=== PATIENT | female | born 1940 | race Caucasian/White ===

== ENCOUNTER → 2017-11-30 | Outpatient (CLI) | payer MEDICARE ==
[~2017-11-30] MED LIST: ALN70T PO; BENA10TA; BENA20TA72 PO; CALC-250 PO; CALC-80 PO; CITA20TA4 PO; ERGO400C; FISH1CAP15 PO; INSU100C; INSU100I5; LOVA20TA2; MAGN400C PO; MELO-195 PO; METF750T2 PO; METH4TAB PO; MNTL10T PO; NIAC750T PO; OMEG1CAP PO; OMG1KC; PNT40TEC PO; PREN-102 PO; TRZ50T PO; VALA100033 PO; VITA150T PO; ZOLP5TAB6 PO; [UNRECOGNIZED DRUG - CODE] PO
--- NOTE | 2017-11-30 11:43 | Diagnostic Imaging Report ---
PROCEDURE: MRI left upper extremity without contrast. TECHNIQUE: Multiplanar, multisequence MR imaging of the left shoulder was performed without contrast. COMPARISON: Left shoulder MRI from 02/24/2014. INDICATION: Left shoulder pain. FINDINGS: Rotator cuff: No high-grade partial or full-thickness rotator cuff tear. Moderate tendinopathy of the subscapularis. No substantial atrophy of the rotator cuff muscle belly. Low-grade focal interstitial tearing of the anterior insertion fibers of supraspinatus. Glenoid labrum: Diffuse degenerative macerated tearing throughout the glenoid labrum. Long head of biceps: Long head of biceps is normally positioned within the bicipital groove. The intracapsular segment is intact. Bones and cartilage: Diffuse full-thickness chondromalacia throughout the glenohumeral joint with reactive bone marrow edema on both sides of the joint and the humeral head and glenoid. Marginal osteophytosis formation of the humeral head and glenoid. Mild hypertrophic degenerative changes of acromioclavicular joint. Soft tissues: Moderate glenohumeral joint effusion with extensive synovitis that is likely reactive/degenerative in nature. No MRI findings of adhesive capsulitis. No fluid or inflammatory like signal within the subacromial/subdeltoid space to indicate bursitis. Deltoid is normal in bulk. IMPRESSION: 1. Severe/end-stage osteoarthritis of the glenohumeral joint. No acquired glenoid retroversion. 2. No full-thickness or retracted rotator cuff tear and no rotator cuff muscle atrophy. 3. The deltoid is normal in bulk. 4. Moderate sized glenohumeral joint effusion with extensive synovitis, this is likely degenerative/reactive in nature. Dictated by: Dictated on workstation # [id number]
== END ==
LOC: RAD 09:35
PROVIDERS: ATTEND Nurse Practitioner Family
DX: M19.012 Primary osteoarthritis, left shoulder (principal)
CPT/HCPCS: 73221

== ENCOUNTER 2018-01-21 11:51 | Outpatient (CLI) | payer MEDICARE ==
[~2018-01-21] VITALS: Ht 165.1 cm; Wt 60.3 kg
[2018-01-21 12:40] LABS: BASOPHILS # (AUTO) 0.1 10^3/uL (0.0-0.1); BASOPHILS % (AUTO) 1 % (0-10); EOSINOPHILS # (AUTO) 0.2 10^3/uL (0.0-0.3); EOSINOPHILS % (AUTO) 2 % (0-10); HEMATOCRIT 44 % (35-52); LYMPHOCYTES # (AUTO) 2.7 X 10^3 (1.0-4.0); LYMPHOCYTES % (AUTO) 30 % (12-44); MEAN CORPUSCULAR HEMOGLOBIN 31 PG (25-34); MEAN CORPUSCULAR HGB CONC 34 G/DL (32-36); MEAN CORPUSCULAR VOLUME 92 FL (80-99); MEAN PLATELET VOLUME 10.1 FL (7.4-10.4); MONOCYTES # (AUTO) 0.6 X 10^3 (0.0-1.0); MONOCYTES % (AUTO) 6 % (0-12); NEUTROPHILS # (AUTO) 5.7 X 10^3 (1.8-7.8); NEUTROPHILS % (AUTO) 62 % (42-75); PLATELET COUNT 301 10^3/uL (130-400); WHITE BLOOD COUNT 9.2 10^3/uL (4.3-11.0)
--- NOTE | 2018-01-21 12:54 | Diagnostic Imaging Report ---
INDICATION: Preop for left total shoulder replacement. TIME OF EXAM: 1:02 p.m. COMPARISON: Comparison is made with prior chest from 01/08/2013. FINDINGS: The heart size is normal. The pulmonary vascularity is unremarkable. The lungs are clear. No infiltrate, effusion or pneumothorax is detected. IMPRESSION: No acute cardiopulmonary process is detected. Dictated by: Dictated on workstation # [id number]
[2018-01-21 13:00] LABS: ALBUMIN 4.4 GM/DL (3.2-4.5); BILIRUBIN,TOTAL 0.5 MG/DL (0.1-1.0); CALCIUM 10.1 MG/DL (8.5-10.1); CREATININE SERUM 0.95 MG/DL (0.60-1.30); POTASSIUM 3.7 MMOL/L (3.6-5.0); TOTAL PROTEIN 7.7 GM/DL (6.4-8.2)
[2018-01-21 13:03] LABS: PROTHROMBIN TIME PATIENT 13.3 SEC (12.2-14.7)
[2018-01-21 13:13] LABS: BILIRUBIN,URINE NEGATIVE (NEGATIVE); CLARITY,URINE CLEAR; COLOR,URINE YELLOW; GLUCOSE, URINE (UA) NEGATIVE (NEGATIVE); KETONES,URINE NEGATIVE (NEGATIVE); LEUKOCYTE ESTERASE ,URINE 3+ (NEGATIVE); NITRITE,URINE NEGATIVE (NEGATIVE); PH,URINE 5 (5-9); PROTEIN,URINE NEGATIVE (NEGATIVE); UROBILINOGEN,URINE NORMAL (NORMAL)
[2018-01-21 13:18] VITALS: BP 140/71
[2018-01-21 13:24] LABS: BACTERIA,URINE TRACE /HPF; RBC,URINE RARE /HPF
[2018-01-21 13:34] LABS: ERYTHROCYTE SEDIMENTATION RATE 18 MM/HR (0-30)
== END 2018-01-21 13:00 | disposition home or self-care (01) ==
LOC: PREOP 11:51
PROVIDERS: ATTEND Orthopaedic Surgery
DX: Z01.810 Encounter for preprocedural cardiovascular examination (principal); Z01.811 Encounter for preprocedural respiratory examination; Z01.812 Encounter for preprocedural laboratory examination; Z11.2 Encounter for screening for other bacterial diseases; M19.012 Primary osteoarthritis, left shoulder; R53.83 Other fatigue
CPT/HCPCS: 36415; 71046; 80053; 81000; 85025; 85610; 85652; 86850; 86900; 86901; 87081; 87088; 93005

== ENCOUNTER 2018-01-30 06:00 | Inpatient (IN) | payer MEDICARE ==
--- NOTE | 2018-01-21 16:23 | HISTORY AND PHYSICAL ---
DATE OF SERVICE: 01/30/2018 DATE OF ADMISSION: 01/30/2018 REASON FOR ADMISSION: This will be for inpatient admission on 01/30/2018 for left total shoulder arthroplasty. HISTORY OF PRESENT ILLNESS: The patient is a 77-year-old left hand dominant female with complaints of progressive worsening left shoulder pain. She underwent an MRI, which showed no rotator cuff pathology, but severe glenohumeral arthrosis. She reports it has been progressive in nature. She reports marked limitations in the shoulder and loss of activities of daily living and function because of the shoulder. She has tried rest and activity modifications. Radiographs reveal severe glenohumeral arthrosis with complete loss of glenohumeral joint space. Due to functional impairment and failure to improve with conservative measures, the patient elected to proceed with surgical intervention. REVIEW OF SYSTEMS: No chest pain, no shortness of breath. No dysuria. PAST MEDICAL HISTORY: Diabetes mellitus type 2, hyperlipidemia, osteoarthritis. PAST SURGICAL HISTORY: Adenoidectomy, tonsillectomy, appendectomy. PRIMARY CARE PROVIDER: [facility]. MEDICATIONS: None. ALLERGIES: No known drug allergies. SOCIAL HISTORY: The patient denies alcohol use. She is a previous smoker. PHYSICAL EXAMINATION: GENERAL: The patient is a well-developed, well-nourished, in no acute distress. HEENT: Normocephalic, atraumatic. Pupils are equal, round, reactive to light. Oropharynx is clear. NECK: Supple, with no lymphadenopathy. LUNGS: Clear to auscultation bilaterally. HEART: Regular rate and rhythm. ABDOMEN: Soft, nontender, nondistended. EXTREMITIES: The left shoulder demonstrates no skin lesions. She has active forward elevation 90 degrees of the left shoulder. Marked glenohumeral crepitus. External rotation 30 degrees, internal rotation to her buttock. Sensation intact to her left upper extremity. IMPRESSION: Severe left shoulder osteoarthritis. PLAN: Left shoulder arthroplasty. The risks, benefits, options, ramifications and recovery have been discussed at length with the patient. She understands and wishes to proceed. Job ID: [id number] DocumentID: [id number] Dictated Date: 01/21/2018 16:00:33 Clinical Research Analyst Date: 01/21/2018 16:23:39 Dictated By: MANNY DONIS MD
[~2018-01-30] VITALS: Ht 165.1 cm; Wt 60.3 kg
--- OUTSIDE RECORDS SUMMARY | 2018-01-30 06:07 | XMS REPORT | Continuity of Care Document ---
Author Author [facility] Organization [facility] Address Unknown Phone Unavailable Allergies Active Description Code Type Severity Reaction Onset Reported/Identified Relationship to Patient Clinical Status Yes No Known Drug Allergies [id number] Drug Allergy Unknown N/A 11/23/2009 Medications There is no data. Problems Date Dx Coded Attending Type Code Diagnosis Diagnosed By 01/27/2013 Ot 250.00 DIAB PATTI WO COMPL, TYPE II OR UNSPEC TY 01/27/2013 Ot 531.90 STOMACH ULCER NOS 01/27/2013 Ot 562.10 DIVERTICULOSIS COLON (W/O MENT OF HEMORR 01/27/2013 Ot 783.21 LOSS OF WEIGHT 01/27/2013 Ot V76.51 SCREEN MAL NEOP-COLON 02/09/2014 HEATHER GUPTA, SHAWN Briggs Ot 053.9 HERPES ZOSTER NOS 02/09/2014 HEATHER GUPTA, SHAWN Briggs Ot 782.1 NONSPECIF SKIN ERUPT NEC 11/29/2017 DIMAS GUPTA, ROLF Tellez Ot 729.5 PAIN IN LIMB 11/29/2017 DIMAS GUPTA, ROLF Tellez Ot 562.10 DIVERTICULOSIS COLON (W/O MENT OF HEMORR 11/29/2017 ROLF COCHRAN MD Ot 715.31 LOC OSTEOARTH NOS-SHLDER 11/29/2017 ROLF COCHRAN MD Ot 715.34 LOC OSTEOARTH NOS-HAND 11/29/2017 ROLF COCHRAN MD Ot 719.41 JOINT PAIN-SHLDER 11/29/2017 ROLF COCHRAN MD Ot 726.10 BURSAE TENDONS DIS SHLDER NOS 11/29/2017 ROLF COCHRAN MD Ot 789.00 ABDOMINAL PAIN, UNSPECIFIED SITE 12/03/2017 MEGAN CHRISTIANSON APRN Ot M19.012 PRIMARY OSTEOARTHRITIS, LEFT SHOULDER 12/03/2017 MEGAN CHRISTIANSON APRN Ot M19.012 PRIMARY OSTEOARTHRITIS, LEFT SHOULDER 12/20/2017 MEGAN CHRISTIANSON APRN Ot M19.012 PRIMARY OSTEOARTHRITIS, LEFT SHOULDER 12/28/2017 MEGAN CHRISTIANSON APRN Ot M19.012 PRIMARY OSTEOARTHRITIS, LEFT SHOULDER 01/21/2018 MANNY DONIS MD Ot Z01.812 ENCOUNTER FOR PREPROCEDURAL LABORATORY E 01/21/2018 DIMAS GUPTA, ROLF Tellez Ot 729.5 PAIN IN LIMB 01/21/2018 ROLF COCHRAN MD Ot 562.10 DIVERTICULOSIS COLON (W/O MENT OF HEMORR 01/21/2018 DIMAS GUPTA, ROLF Tellez Ot 715.31 LOC OSTEOARTH NOS-LDER 01/21/2018 ROLF COCHRAN MD Ot 715.34 LOC OSTEOARTH NOS-HAND 01/21/2018 ROLF COCHRAN MD Ot 719.41 JOINT PAIN-LDER 01/21/2018 ROLF COCHRAN MD Ot 726.10 BURSAE TENDONS DIS SHLDER NOS 01/21/2018 ROLF COCHRAN MD Ot 789.00 ABDOMINAL PAIN, UNSPECIFIED SITE 01/21/2018 MEGAN CHRISTIANSON APRN Ot M19.012 PRIMARY OSTEOARTHRITIS, LEFT SHOULDER 01/23/2018 MANNY DONIS MD Ot M19.012 PRIMARY OSTEOARTHRITIS, LEFT SHOULDER 01/23/2018 MANNY DONIS MD Ot R53.83 OTHER FATIGUE 01/23/2018 MANNY DONIS MD Ot Z01.810 ENCOUNTER FOR PREPROCEDURAL CARDIOVASCUL 01/23/2018 MANNY DONIS MD Ot Z01.811 ENCOUNTER FOR PREPROCEDURAL RESPIRATORY 01/23/2018 MANNY DONIS MD Ot Z01.812 ENCOUNTER FOR PREPROCEDURAL LABORATORY E 01/23/2018 MANNY DONIS MD Ot Z11.2 ENCOUNTER FOR SCREENING FOR OTHER BACTER Procedures There is no data. Results Test Result Range Complete blood count (CBC) with automated white blood cell (WBC) differential - 01/21/18 12:30 Blood leukocytes automated count (number/volume) 9.2 10*3/uL 4.3-11.0 Blood erythrocytes automated count (number/volume) 4.80 10*6/uL 4.35-5.85 Venous blood hemoglobin measurement (mass/volume) 15.0 g/dL 11.5-16.0 Blood hematocrit (volume fraction) 44 % 35-52 Automated erythrocyte mean corpuscular volume 92 [foz_us] 80-99 Automated erythrocyte mean corpuscular hemoglobin (mass per erythrocyte) 31 pg 25-34 Automated erythrocyte mean corpuscular hemoglobin concentration measurement ( mass/volume) 34 g/dL 32-36 Automated erythrocyte distribution width ratio 13.0 % 10.0-14.5 Automated blood platelet count (count/volume) 301 10*3/uL 130-400 Automated blood platelet mean volume measurement 10.1 [foz_us] 7.4-10.4 Automated blood neutrophils/100 leukocytes 62 % 42-75 Automated blood lymphocytes/100 leukocytes 30 % 12-44 Blood monocytes/100 leukocytes 6 % 0-12 Automated blood eosinophils/100 leukocytes 2 % 0-10 Automated blood basophils/100 leukocytes 1 % 0-10 Blood neutrophils automated count (number/volume) 5.7 10*3 1.8-7.8 Blood lymphocytes automated count (number/volume) 2.7 10*3 1.0-4.0 Blood monocytes automated count (number/volume) 0.6 10*3 0.0-1.0 Automated eosinophil count 0.2 10*3/uL 0.0-0.3 Automated blood basophil count (count/volume) 0.1 10*3/uL 0.0-0.1 Comprehensive metabolic panel - 01/21/18 12:30 Serum or plasma sodium measurement (moles/volume) 139 mmol/L 135-145 Serum or plasma potassium measurement (moles/volume) 3.7 mmol/L 3.6-5.0 Serum or plasma chloride measurement (moles/volume) 102 mmol/L 98-107 Carbon dioxide 25 mmol/L 21-32 Serum or plasma anion gap determination (moles/volume) 12 mmol/L 5-14 Serum or plasma urea nitrogen measurement (mass/volume) 13 mg/dL 7-18 Serum or plasma creatinine measurement (mass/volume) 0.95 mg/dL 0.60-1.30 Serum or plasma urea nitrogen/creatinine mass ratio 14 NRG Serum or plasma creatinine measurement with calculation of estimated glomerular filtration rate 57 NRG Serum or plasma glucose measurement (mass/volume) 105 mg/dL 70-105 Serum or plasma calcium measurement (mass/volume) 10.1 mg/dL 8.5-10.1 Serum or plasma total bilirubin measurement (mass/volume) 0.5 mg/dL 0.1-1.0 Serum or plasma alkaline phosphatase measurement (enzymatic activity/volume) 129 U/L 40-136 Serum or plasma aspartate aminotransferase measurement (enzymatic activity/ volume) 16 U/L 5-34 Serum or plasma alanine aminotransferase measurement (enzymatic activity/volume ) 11 U/L 0-55 Serum or plasma protein measurement (mass/volume) 7.7 g/dL 6.4-8.2 Serum or plasma albumin measurement (mass/volume) 4.4 g/dL 3.2-4.5 PT panel in platelet poor plasma by coagulation assay - 01/21/18 12:30 Prothrombin time (PT) in platelet poor plasma by coagulation assay 13.3 s 12.2-14.7 INR in platelet poor plasma or blood by coagulation assay 1.0 0.8-1.4 Erythrocyte sedimentation rate by westergren method - 01/21/18 12:30 Erythrocyte sedimentation rate by westergren method 18 mm 0-30 Blood type T Indirect antibody screen panel - 01/21/18 12:30 ABO+Rh group OP NRG Blood group antibody screen NEGATIVE NRG Methicillin resistant Staphylococcus aureus (MRSA) screening culture - 12:30 Methicillin resistant Staphylococcus aureus (MRSA) screening culture NEG NRG Complete urinalysis with reflex to culture - 01/21/18 12:48 Urine color determination YELLOW NRG Urine clarity determination CLEAR NRG Urine pH measurement by test strip 5 5-9 Specific gravity of urine by test strip 1.020 1.016- 1.022 Urine protein assay by test strip, semi-quantitative NEGATIVE NEGATIVE Urine glucose detection by automated test strip NEGATIVE NEGATIVE Erythrocytes detection in urine sediment by light microscopy 3+ NEGATIVE Urine ketones detection by automated test strip NEGATIVE NEGATIVE Urine nitrite detection by test strip NEGATIVE NEGATIVE Urine total bilirubin detection by test strip NEGATIVE NEGATIVE Urine urobilinogen measurement by automated test strip (mass/volume) NORMAL NORMAL Urine leukocyte esterase detection by dipstick 3+ NEGATIVE Automated urine sediment erythrocyte count by microscopy (number/high power field) RARE NRG Automated urine sediment leukocyte count by microscopy (number/high power field ) [HPF] NRG Bacteria detection in urine sediment by light microscopy TRACE NRG Squamous epithelial cells detection in urine sediment by light microscopy 5-10 NRG Crystals detection in urine sediment by light microscopy NONE NRG Casts detection in urine sediment by light microscopy NONE NRG Mucus detection in urine sediment by light microscopy NEGATIVE NRG Complete urinalysis with reflex to culture YES NRG Bacterial urine culture - 01/21/18 12:48 Bacterial urine culture [id number] NRG COLONY COUNT <10,000 NRG FTX;REPORTABLE SINGLE COLONY NRG URINE CULTURE RESULTS PLUS NRG FREE TEXT ENTRY 2 NO FURTHER STUDIES UNLESS REQUESTED NRG Encounters ACCT No. Visit Date/Time Discharge Status Pt. Type Provider Facility Loc./Unit Complaint [id number] 01/21/2018 11:51:00 01/21/2018 13:00:00 DIS Outpatient MANNY DONIS MD [facility] PREOP LEFT SHOULDER OSTEOARTHRITIS [id number] 11/30/2017 09:35:00 11/30/2017 23:59:59 CLS Outpatient MEGAN CHRISTIANSON APRN [facility] RAD LT ANTERIOR SHOULDER PAIN [id number] 02/24/2014 12:44:00 02/24/2014 23:59:59 CLS Outpatient ROLF COCHRAN MD [facility] RAD LFT SHOULDER PAIN,RT GROIN PAIN [id number] 02/09/2014 08:56:00 02/09/2014 09:31:00 DIS Emergency HEATHER GUPTA, SHAWN Briggs [facility] ER RASH ON RIGHT LEG [id number] 08/11/2013 11:23:00 08/11/2013 23:59:59 CLS Outpatient ROLF COCHRAN MD [facility] RAD PAIN IN LIMB [id number] 01/30/2018 08:45:00 PEN Preadmit MANNY DONIS MD LEFT SHOULDER OSTEOARTHRITIS [id number] 01/27/2013 08:46:00 Document Registration
[2018-01-30] MEDS ORDERED: ROPIVACAINE 5MG/ML 30ML VIAL ONE (06:31)
[2018-01-30] MEDS ORDERED: MIDAZOLAM 2 MG/2 ML (VERSED) VIAL ONE (06:31)
[2018-01-30] MEDS: LACTATED RINGERS 1,000 ML IV PRN ×2 (06:43→07:35)
[2018-01-30] MEDS ORDERED: CEFUROXIME INJECTION 1,500 MG in NS (IVPB) 100 ML IV ONE (06:45)
[2018-01-30 06:46] VITALS: BP 128/80
[2018-01-30] MEDS ORDERED: DEXAMETHASONE 10 MG/ML (DECADRON) 1 ML VIAL ONE (06:46)
[2018-01-30] MEDS ORDERED: LIDOCAINE PF 2% 5 ML (XYLOCAINE) VIAL ONE (06:46)
[2018-01-30] MEDS ORDERED: NS (IVPB) 100 ML ONE (06:46)
[2018-01-30] MEDS ORDERED: ONDANSETRON 4 MG/2 ML (SDV) Z0FRAN ONE (06:46)
[2018-01-30] MEDS ORDERED: CEFUROXIME 1.5 GM (ZINACEF) VIAL ONE (06:46)
[2018-01-30] MEDS ORDERED: proPOfol 200 MG/20 ML (DIPRIVAN) VIAL IV ONE (06:46)
[2018-01-30] MEDS ORDERED: ROCURONIUM 10 MG/ML 5 ML SYRINGE IV ONE (06:46)
[2018-01-30] MEDS ORDERED: SEVOFLURANE (ULTANE) 15 ML INHAL SOLN ONE ×4 (06:46→09:43)
[2018-01-30] MEDS ORDERED: fentaNYL INJECTION 100 MCG/2 ML AMP ONE (06:47)
[2018-01-30] MEDS ORDERED: BUPIVACAINE 0.25% 30 ML (SENSORCAINE) VIAL ONE (07:02)
--- NOTE | 2018-01-30 07:26 | Progress Note-Pre Operative ---
Pre-Operative Progress Note H&P Reviewed The H&P was reviewed, patient examined and no changes noted. Date Seen by Provider: Jan 30, 2018 Time Seen by Provider: 07:25 Date H&P Reviewed: Jan 30, 2018 Time H&P Reviewed: 07:26 Pre-Operative Diagnosis: left shoulder primary osteoarthritis MANNY DONIS MD Jan 30, 2018 07:26
--- NOTE | 2018-01-30 07:27 | Progress Note-Post Operative ---
Post-Operative Progess Note Surgeon (s)/Camera Control Operator (s) Surgeon MANNY DONIS MD Camera Control Operator: willem Nevarez Pre-Operative Diagnosis left shoulder primary osteoarthritis Post-Operative Diagnosis left shoulder primary osteoarthritis Procedure & Operative Findings Date of Procedure 01/30/18 Procedure Performed/Findings left total shoulder arthroplasty Anesthesia Type GETA plus interscalene Estimated Blood Loss Estimated blood loss (mL): 400 ml Specimens/Packing Specimens Removed none Packing: none MANNY DONIS MD Jan 30, 2018 07:27
[2018-01-30] MEDS ORDERED: OXYC-197 PO (07:28)
[2018-01-30] MEDS ORDERED: morphine PCA 30 MG/30 ML VIAL IV PRN (07:30)
[2018-01-30] MEDS ORDERED: ONDANSETRON 4 MG/2 ML (SDV) Z0FRAN IVP PRN ×2 (07:30→08:30)
[2018-01-30] MEDS ORDERED: ACETAMINOPHEN 325 MG TABLET/CAPLET (TYLENOL) PO PRN (07:30)
--- NOTE | 2018-01-30 07:30 | D/C HH Face to Face Order ---
D/C Face to Face Orders Instructions for Patient Patient Instructions/FollowUp: two weeks Physician to follow Patient: two weeks Discharge Diet for Home: Regular Diet Patient Data-Allergies,Ht & Wt Patient Allergies: Coded Allergies: No Known Drug Allergies (Verified , 11/23/09) Height (Feet): 5 Height (Inches): 5.00 Weight (Pounds): 133 Weight (Ounces): 0.0 Home Health Need/Face to Face Date of Face to Face: Jan 30, 2018 Clinical Findings: Instability, Muscle weakness, Unsteady gait I have seen Pt [id number]: Yes Discharged To: Home Diagnosis/Conditions: left shoulder arthroplasty Patient is Homebound due to: Praveen fall risk due to instabilty, Muscle weakness Homebound Status Due to the above stated illness, injury or surgical procedure (medical condition or diagnosis) and associated clinical findings, the patient is homebound because of his/her inability to leave home except with aid of a supportive device and/or person AND leaving the home requires a considerable and taxing effort or is medically contraindicated. Pt req the following assistanc: Aid of another person Home Health Nursing Orders Home Health Services Order: Physical Therapy-Evaluate & Treat Home Health Infusion Therapy Line Start Date: Jan 30, 2018 Line Start Time: 629 Line Type: Peripheral IV Site Location: Forearm Therapy Orders Therapy Orders: Physical Therapy, PT to assess for OT Therapy Specific Orders: Eval assistive deivces, Teach enviro modifications/ safety, Increase strength/endurance, Restore ROM Certify Stmt I certify that this patient is under my care and that I, a nurse practitioner or a physician; a operations assistant working with me, had a face to face encounter that - meets the physician face to face encounter requirements with this patient as dated. MANNY DONIS MD Jan 30, 2018 07:30
[2018-01-30] MEDS ORDERED: morphine INJ 10 MG/ML 1ML (SYR OR VIAL) IVP PRN (08:30)
[2018-01-30] MEDS ORDERED: MEPERIDINE (DEMEROL) INJ 50 MG/ML IVP PRN (08:30)
[2018-01-30] MEDS ORDERED: PHENYLEPHRINE INJ 10 MG/ML (NEO-SYNEPHRINE 1%) ONE ×3 (08:47→09:43)
[2018-01-30] MEDS ORDERED: PHENYLEPHRINE 100 MCG/ML 10 ML (ANESTHESIA) SYR ONE (08:47)
[2018-01-30] MEDS ORDERED: NEOSTIGMINE 1 MG/ML 5 ML SYRINGE ONE (09:43)
[2018-01-30] MEDS ORDERED: GLYCOPYRROLATE 0.2 MG/ML (ROBINUL) 2 ML VIAL ONE (09:43)
--- NOTE | 2018-01-30 10:29 | Anesthesia-General Post-Op ---
General Patient Condition Mental Status/LOC: Same as Preop Cardiovascular: Satisfactory Nausea/Vomiting: Absent Respiratory: Satisfactory Pain: Controlled Complications: Absent Post Op Complications Complications None Follow Up Care/Instructions Patient Instructions None needed. Anesthesia/Patient Condition Patient Condition Patient is doing well, no complaints, stable vital signs, no apparent adverse anesthesia problems. No complications reported per nursing. D/C home per [facility] Criteria: Yes CHESTER WALLACE CRNA Jan 30, 2018 10:29
--- NOTE | 2018-01-30 10:53 | Progress Note-Standard ---
Standard Progress Note Progress Notes/Assess & Plan Date Seen by Provider: Jan 30, 2018 Time Seen by Provider: 10:52 Progress/Assessment & Plan post op check resting block in effect radiographs--HW well positioned without fx LUE--brisk cap refill with symmetric pulses s/p L TSA mobilize/pain control MANNY DONIS MD Jan 30, 2018 10:53
[2018-01-30 11:25] VITALS: BP 92/51
[2018-01-30] MEDS ORDERED: NS IV 1000 ML 1,000 ML IV SCH (12:45)
[2018-01-30 13:00] VITALS: BP 118/57
--- NOTE | 2018-01-30 13:25 | Diagnostic Imaging Report ---
INDICATION: Postop left shoulder replacement. TECHNIQUE: Two portable postoperative views of the left shoulder were performed at 10:09 AM. CORRELATION STUDY: None. FINDINGS: Postoperative change of left humeral head prosthesis. There is loss of normal smooth contour of the bony glenoid. Soft tissue gas collection and overlying skin chata are present. The alignment appears to be near-anatomic. Probable effusion in the left lung base. There may be minimal atelectasis or even perhaps infiltrate in the perihilar and basilar region. IMPRESSION: Postoperative change of left shoulder arthroplasty. Dictated by: Dictated on workstation # [id number]
[2018-01-30] MEDS ORDERED: IBUP-30 PO (13:58)
[2018-01-30] MEDS: CEFUROXIME INJECTION 750 MG in NS (IVPB) 100 ML IV SCH ×2 (14:32→22:00)
[2018-01-30 16:00] VITALS: BP 115/59
--- NOTE | 2018-01-30 18:06 | OPERATIVE REPORT ---
DATE OF SERVICE: 01/30/2018 PREOPERATIVE DIAGNOSIS: Left shoulder primary osteoarthritis. POSTOPERATIVE DIAGNOSIS: Left shoulder primary osteoarthritis. PROCEDURE: Left total shoulder arthroplasty. SURGEON: Pepe Donis MD HELP DESK ASSISTANT: LILLIAN Blas, who assisted throughout the procedure and closed the incision. ANESTHESIA: General endotracheal plus interscalene nerve block by Armin Dumont CRNA. ESTIMATED BLOOD LOSS: 400 mL. DRAINS: None. COMPLICATIONS: None. MATERIALS: Tornier size 4C stem with a 45 x 15 mm humeral head and a small 30 pegged glenoid. The patient was transferred to recovery room awake and stable condition. POSTOPERATIVE PLAN: Sling wear for 4 weeks with passive range of motion for 4 weeks. STATEMENT OF MEDICAL NECESSITY: The patient is a 77-year-old left hand dominant female with complaints of progressively worsening left shoulder pain and loss of function. Radiographs revealed severe osteoarthritis of the left shoulder. An MRI revealed intact rotator cuff. The patient was counseled regarding treatment options and elected to proceed with a total shoulder arthroplasty understanding that this was for pain relief and would not necessarily improve her range of motion. DESCRIPTION OF PROCEDURE: After risks and benefits of procedure were discussed and questions were answered, informed consent was signed and placed on the chart. The operative site was confirmed in the preoperative holding area initialed by the surgeon. The patient was then transported to the operating room and after adequate levels of regional plus general endotracheal anesthetic were obtained, timeout was called confirmed the operative site. The left shoulder and upper extremity were prepped and draped in the usual sterile fashion. Passive forward elevation was 120 degrees, external rotation was 40 degrees and internal rotation was 40 degrees. After prepping and draping a deltopectoral incision was made anteriorly. Hemostasis was obtained with cautery. The cephalic vein was identified and retracted with the deltoid laterally and carefully protected throughout the procedure and intact at the conclusion of the procedure. The interval was bluntly dissected. A finger dissection was carried out underneath the deltoid and a deltoid retractor was placed and the clot. Clavipectoral fascia was incised on the lateral aspect of the conjoined tendon. The bicipital groove was identified and 1 cm proximal to the lesser tuberosity. The subscapularis and capsule were incised and tagging sutures were placed. This exposed the glenohumeral joint. Hemostasis was obtained with cautery. A subperiosteal release was performed on the proximal humeral metaphysis for approximately 2 cm. The osteophytes off the humeral neck were resected identifying the anatomic neck. A freehand cut was then made, removing the humeral head. The canal finder was then placed followed by the sounder and the broaches. A 4 broach provided good metaphyseal contact. This was then planed on the proximal surface and attention was then turned to the glenoid. The glenoid was exposed and a release was performed on the capsule labral complex through 270 degrees exposing the glenoid. The cannulated wire was then placed centrally and a reamer was used to resect the articular surface. The small 30 glenoid guide was placed and the drill holes were placed. The trial was placed and found to have excellent coverage. The joint was copiously irrigated and the small 30 pegged glenoid was then placed and held in position until the cement cured. This was then carefully inspected and found to be stable with excellent coverage. A humeral head trial was then placed. 50% posterior subluxation was obtained. Version was felt to be very good. Full forward elevation was obtained with arm in 90 degrees of abduction at 60 degrees of internal rotation was obtained. The shoulder was stable in all planes. No impingement was noted with adduction that the humeral head and stem trial were removed and a 4C stem was placed with a 45 x 15 mm humeral head. This had excellent purchase. The shoulder was taken through a range of motion and found to be stable in all planes with no impingement. The shoulder joint was copiously irrigated with pulse lavage as I had been throughout the procedure. The capsule and subscapularis were reapproximated #2 Tevdek in mcymiq-wz-ohzmp interrupted fashion with an excellent repair obtained, good tissue remained. The rotator cuff was intact throughout and felt to be of good quality tissue as well. The joint was further irrigated with pulse lavage. A 0 Vicryl was used to loosely approximate the deltopectoral interval. The wound was further irrigated. A 2-0 Vicryl was used for subcutaneous tissue and skin chata used on the skin layer, the incision was infiltrated with plain Marcaine. Soft dressing and sling were applied and the patient was transferred to the recovery room awake and in stable condition. Job ID: [id number] DocumentID: [id number] Dictated Date: 01/30/2018 10:03:35 Hospice Admitting Clerk Date: 01/30/2018 18:05:50 Dictated By: PEPE DONIS MD
[2018-01-30] MEDS: oxyCODONE/APAP 5/325MG (PERCOCET 5) TABLET PO PRN (19:23)
[2018-01-30 20:00] VITALS: BP 114/65
[2018-01-31] VITALS: BP 102/53
[2018-01-31 04:00] VITALS: BP 97/64
[2018-01-31 06:46] LABS: HEMOGLOBIN 11.7 G/DL (11.5-16.0)
[2018-01-31] MEDS: ENOXAPARIN 40 MG/0.4 ML (LOVENOX) SYR SC SCH (07:47)
--- NOTE | 2018-01-31 07:54 | Progress Note-Standard ---
Standard Progress Note Progress Notes/Assess & Plan Date Seen by Provider: Jan 31, 2018 Time Seen by Provider: 07:52 Progress/Assessment & Plan post op check resting block in effect radiographs--HW well positioned without fx LUE--brisk cap refill with symmetric pulses s/p L TSA mobilize/pain control Final Diagnosis No complaints requiring IV pain meds Vital Signs Date Time Temp Pulse Resp B/P (MAP) Pulse Ox O2 Delivery O2 Flow Rate FiO2 01/31/18 07:01 91 01/31/18 06:00 17 01/31/18 04:00 98.9 9 17 97/64 (75) 93 Room Air 01/31/18 00:00 97.6 100 18 102/53 (69) 92 Room Air 01/30/18 20:00 100.0 107 18 114/65 (81) 92 Room Air 01/30/18 18:26 90 2.00 01/30/18 18:25 18 01/30/18 16:00 97.0 95 18 115/59 (77) 94 Room Air 01/30/18 15:00 96 Nasal Cannula 2.00 01/30/18 14:30 96 Nasal Cannula 2.00 01/30/18 13:44 18 01/30/18 13:44 18 01/30/18 13:00 95 118/57 (77) 01/30/18 11:25 95.6 73 18 92/51 (65) 98 Room Air I & O 01/31/18 07:00 Intake Total 3610 ml Output Total 1500 ml Balance 2110 ml Laboratory Tests Test 01/31/18 06:02 Range/Units Hemoglobin 11.7 11.5-16.0 G/DL Hematocrit 36 35-52 % LUE--dressing intact. Intact MCP ext/abduction, thumb IP flexion and extension. Sensation intact throughout s/p L TSA will require inpt admit due to pain management issues. likely DC tomorrow MANNY DONIS MD Jan 31, 2018 07:54
[2018-01-31] MEDS: oxyCODONE/APAP 5/325MG (PERCOCET 5) TABLET PO PRN ×3 (07:58→20:55)
[2018-01-31 08:00] VITALS: BP 114/57
--- NOTE | 2018-01-31 11:33 | Anesthesia-General Post-Op ---
General Patient Condition Mental Status/LOC: Same as Preop Cardiovascular: Satisfactory Nausea/Vomiting: Absent Respiratory: Satisfactory Pain: Controlled Complications: Absent Post Op Complications Complications None Follow Up Care/Instructions Patient Instructions None needed. Anesthesia/Patient Condition Patient Condition Patient is doing well, no complaints, stable vital signs, no apparent adverse anesthesia problems. No complications reported per nursing. D/C home per [facility] [place] Criteria: No ABELARDO JOHNS CRNA Jan 31, 2018 11:33
[2018-01-31 12:00] VITALS: BP 99/52
[2018-01-31] MEDS: morphine INJ 4 MG/ML 1 ML (VIAL/SYRINGE) IVP PRN ×2 (13:15→20:49)
[2018-01-31 15:30] VITALS: BP 105/58
[2018-01-31 19:20] VITALS: BP 116/59
[2018-02-01] VITALS: BP 108/56
[2018-02-01] MEDS: oxyCODONE/APAP 5/325MG (PERCOCET 5) TABLET PO PRN ×2 (03:59→07:46)
[2018-02-01 06:24] LABS: HEMOGLOBIN 10.4 G/DL (11.5-16.0)
--- NOTE | 2018-02-01 06:54 | Progress Note-Standard ---
Standard Progress Note Progress Notes/Assess & Plan Date Seen by Provider: Feb 01, 2018 Time Seen by Provider: 06:54 Progress/Assessment & Plan post op check resting block in effect radiographs--HW well positioned without fx LUE--brisk cap refill with symmetric pulses s/p L TSA mobilize/pain control Final Diagnosis No complaints Vital Signs Date Time Temp Pulse Resp B/P (MAP) Pulse Ox O2 Delivery O2 Flow Rate FiO2 02/01/18 00:00 99.0 101 18 108/56 (73) 95 Room Air 01/31/18 20:00 Room Air 01/31/18 19:20 99.7 106 18 116/59 (78) 94 Room Air 01/31/18 15:30 98.2 90 16 105/58 (74) 93 Room Air 01/31/18 12:00 18 01/31/18 12:00 99.6 94 20 99/52 (68) 98 Room Air 01/31/18 08:00 95 Room Air 01/31/18 08:00 98.4 93 20 114/57 (76) 92 Room Air 01/31/18 07:01 91 I & O 02/01/18 07:00 Intake Total 2250 ml Output Total 2800 ml Balance -550 ml Laboratory Tests Test 02/01/18 06:08 Range/Units Hemoglobin 10.4 L 11.5-16.0 G/DL Hematocrit 32 L 35-52 % LUE--incision clean and dry. NVI distally s/p LTSA [facility] MANNY DONIS MD Feb 01, 2018 06:54
[2018-02-01] MEDS: ENOXAPARIN 40 MG/0.4 ML (LOVENOX) SYR SC SCH (07:46)
[2018-02-01 08:00] VITALS: BP 122/81
[2018-02-01 10:45] VITALS: BP 122/81
--- NOTE | 2018-02-02 03:21 | DISCHARGE SUMMARY ---
DATE OF SERVICE: DIAGNOSES: 1. Left shoulder primary osteoarthritis. 2. Diabetes mellitus. 3. Hyperlipidemia. PROCEDURE: Left total shoulder arthroplasty. HOSPITAL COURSE: The patient is a 77-year-old female who underwent a left total shoulder arthroplasty the day of admission. Postoperatively, she did well. She required 2 nights of hospitalization due to pain control and mobility issues. At the time of discharge, her wound was clean and dry. She was neurovascularly intact throughout. She was tolerating pain with oral pain medication and tolerating diet well. CONDITION ON DISCHARGE: Good. DISCHARGE DIET: Diabetic. FOLLOWUP: Follow up is in 2 weeks. Home physical therapy has been arranged. DISCHARGE MEDICATIONS: Home medications and Percocet. Job ID: [id number] DocumentID: [id number] Dictated Date: 02/01/2018 06:56:26 Facilities Specialist Date: 02/02/2018 03:20:33 Dictated By: MANNY DONIS MD
== END 2018-02-01 10:45 | disposition home health service (06) | DRG 483 ==
LOC: 4TH 06:00 → SURG 06:01 → 4TH 11:20
PROVIDERS: ADMIT Orthopaedic Surgery; ATTEND Orthopaedic Surgery
PROC: 0RRK0JZ Replacement of Left Shoulder Joint with Synthetic Substitute, Open Approach (ICD-10-PCS; principal; 2018-01-30 07:30)
DX: M19.012 Primary osteoarthritis, left shoulder (principal); E11.9 Type 2 diabetes mellitus without complications; I10 Essential (primary) hypertension; E78.5 Hyperlipidemia, unspecified; Z87.891 Personal history of nicotine dependence
CPT/HCPCS: 36415; 73030; 82962; 85014; 85018; 86850; 86900; 86901; 94664; 94760

== ENCOUNTER 2018-05-16 11:37 | Outpatient (RCR) | payer MEDICARE ==
[~2018-05-16 11:37] MED LIST changes: +IBUP-30 PO; +OXYC-197 PO
== END 2018-05-19 | disposition home or self-care (01) ==
PROVIDERS: ATTEND Orthopaedic Surgery
DX: Z47.1 Aftercare following joint replacement surgery (principal); Z96.612 Presence of left artificial shoulder joint

== ENCOUNTER 2018-05-23 10:56 | Outpatient (RCR) | payer MEDICARE | END 2018-05-23 12:39 | disposition home or self-care (01) | PROVIDERS: ATTEND Orthopaedic Surgery | DX: Z47.1 Aftercare following joint replacement surgery (principal); Z96.612 Presence of left artificial shoulder joint ==

== ENCOUNTER 2018-07-09 05:53 | Outpatient (CLI) | payer MEDICARE ==
[~2018-07-09] VITALS: Ht 165.1 cm; Wt 60.3 kg
[~2018-07-09 05:53] MED LIST changes: -OXYC-197 PO; +OXYC1TAB87 PO
[2018-07-09] MEDS ORDERED: ATOR20TA66 PO (14:47)
[2018-07-09] MEDS ORDERED: TRAZ150T72 PO (14:47)
[2018-07-09] MEDS ORDERED: METF-397 PO (14:47)
== END 2018-07-09 14:49 | disposition home or self-care (01) ==
LOC: PREOP 05:53
PROVIDERS: ATTEND Specialist
DX: Z01.818 Encounter for other preprocedural examination (principal)

== ENCOUNTER 2018-07-10 08:52 | Day surgery (SDC) | payer MEDICARE ==
[~2018-07-10] VITALS: Ht 165.1 cm; Wt 60.3 kg
[~2018-07-10 08:52] MED LIST changes: +ATOR20TA66 PO; +METF-397 PO; +TRAZ150T72 PO
--- OUTSIDE RECORDS SUMMARY | 2018-07-10 09:11 | XMS REPORT | Continuity of Care Document ---
Author Author [facility] Organization [facility] Address Unknown Phone Unavailable Allergies Active Description Code Type Severity Reaction Onset Reported/Identified Relationship to Patient Clinical Status Yes No Known Drug Allergies [id number] Drug Allergy Unknown N/A 11/23/2009 Medications There [...] PRIMARY OSTEOARTHRITIS, LEFT SHOULDER 12/28/2017 MEGAN CHRISTIANSON [employer] ENGINE[employer] Ot M19.012 PRIMARY OSTEOARTHRITIS, LEFT SHOULDER 01/21/2018 MANNY DONIS MD Ot M19.012 PRIMARY OSTEOARTHRITIS, LEFT SHOULDER 01/21/2018 MANNY DONIS MD Ot R53.83 OTHER FATIGUE 01/21/2018 MANNY DONIS MD Ot Z01.810 ENCOUNTER FOR PREPROCEDURAL CARDIOVASCUL 01/21/2018 MANNY DONIS MD Ot Z01.811 ENCOUNTER FOR PREPROCEDURAL RESPIRATORY 01/21/2018 MANNY DONIS MD Ot Z01.812 ENCOUNTER FOR PREPROCEDURAL LABORATORY E 01/21/2018 MANNY DONIS MD Ot Z11.2 ENCOUNTER FOR SCREENING FOR OTHER BACTER 01/21/2018 DIMAS GUPTA, ROLF Tellez Ot 729.5 PAIN IN LIMB 01/21/2018 DIMAS GUPTA, ROLF Tellez Ot 562.10 DIVERTICULOSIS COLON (W/O MENT OF HEMORR 01/21/2018 DIMAS GUPTA, ROLF Tellez Ot 715.31 LOC OSTEOARTH NOS-SHLDER 01/21/2018 DIMAS GUPTA, ROLF Tellez Ot 715.34 LOC OSTEOARTH NOS-HAND 01/21/2018 DIMAS GUPTA, ROLF Tellez Ot 719.41 JOINT PAIN-SHLDER 01/21/2018 DIMAS GUPTA, ROLF Tellez Ot 726.10 BURSAE TENDONS DIS SHLDER NOS 01/21/2018 DIMAS GUPTA, ROLF Tellez Ot 789.00 ABDOMINAL PAIN, UNSPECIFIED SITE 01/21/2018 MEGAN CHRISTIANSON [employer] Ot M19.012 PRIMARY OSTEOARTHRITIS, LEFT SHOULDER 01/23/2018 [...] Z11.2 ENCOUNTER FOR SCREENING FOR OTHER BACTER 01/30/2018 DIMAS GUPTA, ROLF Tellez Ot 729.5 PAIN IN LIMB 01/30/2018 DIMAS GUPTA, ROLF Tellez Ot 562.10 DIVERTICULOSIS COLON (W/O MENT OF HEMORR 01/30/2018 DIMAS GUPTA, RLOF Tellez Ot 715.31 LOC OSTEOARTH NOS-SHLDER 01/30/2018 ROLF COCHRAN MD Ot 715.34 LOC OSTEOARTH NOS-HAND 01/30/2018 DIMAS GUPTA, ROLF Tellez Ot 719.41 JOINT PAIN-SHLDER 01/30/2018 DIMAS GUPTA, ROLF Tellez Ot 726.10 BURSAE TENDONS DIS SHLDER NOS 01/30/2018 DIMAS GUPTA, ROLF Tellez Ot 789.00 ABDOMINAL PAIN, UNSPECIFIED SITE 01/30/2018 CHRISTIANSON MEGAN Elizabeth RAMIREZ Ot M19.012 PRIMARY OSTEOARTHRITIS, LEFT SHOULDER 02/01/2018 MANNY DONIS MD Ot E11.9 TYPE 2 DIABETES MELLITUS WITHOUT COMPLIC 02/01/2018 MANNY DONIS MD Ot E78.5 HYPERLIPIDEMIA, UNSPECIFIED 02/01/2018 MANNY DONIS MD Ot I10 ESSENTIAL (PRIMARY) HYPERTENSION 02/01/2018 MANNY DONIS MD Ot M19.012 PRIMARY OSTEOARTHRITIS, LEFT SHOULDER 02/01/2018 MANNY DONIS MD Ot Z87.891 PERSONAL HISTORY OF NICOTINE DEPENDENCE 02/19/2018 MANNY DONIS MD Ot Z47.1 AFTERCARE FOLLOWING JOINT REPLACEMENT WHITE 02/19/2018 MANNY DONIS MD Ot 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 02/22/2018 MANYN DONIS MD Ot Z47.1 AFTERCARE FOLLOWING JOINT REPLACEMENT WHITE 02/22/2018 MANNY DONIS MD Ot 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 02/22/2018 MANNY DONIS MD Ot Z47.1 AFTERCARE FOLLOWING JOINT REPLACEMENT WHITE 02/22/2018 MANNY DONIS MD Ot 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 02/22/2018 MANNY DONIS MD Ot Z47.1 AFTERCARE FOLLOWING JOINT REPLACEMENT WHITE 02/22/2018 MANNY DONIS MD Ot 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 04/05/2018 MANNY DONIS MD Ot Z47.1 AFTERCARE FOLLOWING JOINT REPLACEMENT WHITE 04/05/2018 MANNY DONIS MD Ot 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 04/10/2018 MANNY DONIS MD Ot Z47.1 AFTERCARE FOLLOWING JOINT REPLACEMENT WHITE 04/10/2018 MANNY DONIS MD Ot 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 05/06/2018 MANNY DONIS MD Ot Z47.1 AFTERCARE FOLLOWING JOINT REPLACEMENT WHITE 05/06/2018 MANNY DONIS MD Ot 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 05/23/2018 Ot Z47.1 AFTERCARE FOLLOWING JOINT REPLACEMENT WHITE 05/23/2018 Ot 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 Procedures Code Description Performed By Performed On 2MOB5FT REPLACEMENT OF L SHOULDER JT WITH SYNTH 01/30/2018 Results Test Result Range Complete blood count [...] culture - 01/21/18 12:48 Bacterial urine culture [id number] NRG COLONY COUNT <10,000 NRG FTX;REPORTABLE SINGLE COLONY NRG URINE CULTURE RESULTS PLUS NRG FREE TEXT ENTRY 2 NO FURTHER STUDIES UNLESS REQUESTED NRG Blood type T Indirect antibody screen panel - 01/30/18 06:20 ABO+Rh group OP NRG Transfusion band number [id number] NRG Blood group antibody screen NEGATIVE NRG Capillary blood glucose measurement by glucometer (mass/volume) - 01/30/18 06: 39 Capillary blood glucose measurement by glucometer (mass/volume) 137 mg/dL 70-110 Whole blood hemoglobin and hematocrit panel - 01/31/18 06:02 Venous blood hemoglobin measurement (mass/volume) 11.7 g/dL 11.5-16.0 Blood hematocrit (volume fraction) 36 % 35-52 Whole blood hemoglobin and hematocrit panel - 02/01/18 06:08 Venous blood hemoglobin measurement (mass/volume) 10.4 g/dL 11.5-16.0 Blood hematocrit (volume fraction) 32 % 35-52 Encounters ACCT No. Visit Date/Time Discharge Status Pt. Type Provider Facility Loc./Unit Complaint [id number] 05/14/2018 09:54:00 05/14/2018 23:59:59 CLS Outpatient MANNY DONIS MD [facility] REHAB L TOTAL SHOULDER; PRIMARY OA LEFT SHOULDER [id number] 01/30/2018 06:00:00 02/01/2018 10:45:00 DIS Inpatient MANNY DONIS MD [facility] 4TH LEFT SHOULDER OSTEOARTHRITIS [id number] 01/21/2018 11:51:00 01/21/2018 13:00:00 DIS Outpatient MANNY DONIS MD [facility] PREOP LEFT SHOULDER OSTEOARTHRITIS [id number] 11/30/2017 09:35:00 11/30/2017 23:59:59 CLS Outpatient MEGAN CHRISTIANSON APRN [facility] RAD LT ANTERIOR SHOULDER PAIN [id number] 02/24/2014 12:44:00 02/24/2014 23:59:59 CLS Outpatient ROLF COCHRAN MD [facility] RAD LFT SHOULDER PAIN,RT GROIN PAIN [id number] 02/09/2014 08:56:00 02/09/2014 09:31:00 DIS Emergency SHAWN ROMERO MD [facility] ER RASH ON RIGHT LEG [id number] 08/11/2013 11:23:00 08/11/2013 23:59:59 CLS Outpatient ROLF COCHRAN MD [facility] RAD PAIN IN LIMB [id number] 07/10/2018 11:15:00 [facility]AR[facility] [id number] 05/23/2018 10:56:00 Document Registration [id number] 01/27/2013 08:46:00 Document Registration
[2018-07-10] MEDS ORDERED: POVIDONE (BETADINE) OPHTH SOLN 5% 30 ML OP ONE (09:15)
[2018-07-10] MEDS ORDERED: EPINEPHrine INJECTION 1 MG/ML AMP INJ ONE (09:15)
[2018-07-10] MEDS ORDERED: TIMOLOL MALEATE 0.5% 5 ML (TIMOPTIC) BTL OU PRN (09:15)
[2018-07-10] MEDS ORDERED: MOXIFLOXACIN OPHTH SOLN 5 MG/ML 0.3 ML SYRINGE OP ONE (09:15)
[2018-07-10] MEDS ORDERED: LIDOCAINE PF 1% 2 ML AMP IR PRN (09:15)
[2018-07-10] MEDS: TETRACAINE 0.5% OPHTH SOLN 4 ML BTL (SINGLE DOSE ONLY) OU PRN ×4 (09:18→09:36)
[2018-07-10] MEDS: PHENYLEPHRINE 10% OPHTH (NEO-SYN) 5 ML BTL OU SCH ×3 (09:27→09:36)
[2018-07-10] MEDS: CYCLOPENTOLATE 1% (CYCLOGYL) 2 ML DROPS OP SCH ×3 (09:27→09:36)
[2018-07-10 09:29] VITALS: BP 132/72
[2018-07-10] MEDS ORDERED: MIDAZOLAM 2 MG/2 ML (VERSED) VIAL ONE (09:55)
--- NOTE | 2018-07-10 10:14 | Ophthalmologist Pre-Op Note ---
Pre-Operative Progress Note H&P Reviewed The H&P was reviewed, patient examined and no changes noted. Date H&P Reviewed: Jul 10, 2018 Time H&P Reviewed: 10:14 Pre-Op Dx Cataract, Right Eye SHARON NUNEZ MD Jul 10, 2018 10:14
--- NOTE | 2018-07-10 10:43 | Ophthalmology Operative Report ---
Cataract removal/placement IOL PREOPERATIVE DIAGNOSIS: Cataract Right Eye POSTOPERATIVE DIAGNOSIS: Cataract Right Eye PROCEDURE: Cataract removal and placement of posterior chamber implant, right eye SURGEON: Chris Nunez ANESTHESIA: Topical with sedation COMPLICATIONS: None ESTIMATED BLOOD LOSS: Minimal DESCRIPTION OF PROCEDURE: After proper informed consent was obtained, the patient, a 78 female, was taken to the Operating Room and the right eye was anesthetized with tetracaine. The right eye was then prepped and draped in the usual manner. A wire lid speculum was placed. A paracentesis was made at the left hand position. Preservative free lidocaine was injected into the anterior chamber followed by viscoelastic. A clear corneal incision was made in the temporal position. A capsulorrhexis was preformed and the central nuclear and cortical material were removed. The posterior capsule was polished and Rohan 20.5 AU00T0 IOL was placed into the capsular bag. The residual viscoelastic was aspirated and balanced saline solution was injected into the anterior chamber. Moxifloxacin was injected into the anterior chamber. The wound was checked and found to be water tight. The patient tolerated the procedure well without complications. CHRIS NUNEZ MD Jul 10, 2018 10:43
[2018-07-10 10:52] VITALS: BP 106/61
== END 2018-07-10 10:52 | disposition home or self-care (01) ==
LOC: SDC 08:52
PROVIDERS: ATTEND Specialist
DX: H26.9 Unspecified cataract (principal); I10 Essential (primary) hypertension; F32.9 Major depressive disorder, single episode, unspecified; G47.00 Insomnia, unspecified; E11.36 Type 2 diabetes mellitus with diabetic cataract; E78.00 Pure hypercholesterolemia, unspecified; E78.5 Hyperlipidemia, unspecified; F17.210 Nicotine dependence, cigarettes, uncomplicated; Z79.84 Long term (current) use of oral hypoglycemic drugs; Z79.899 Other long term (current) drug therapy
CPT/HCPCS: 82962

== ENCOUNTER 2018-07-24 06:08 | Outpatient (CLI) | payer MEDICARE ==
[~2018-07-24] VITALS: Ht 165.1 cm; Wt 60.3 kg
== END 2018-07-24 15:46 | disposition home or self-care (01) ==
LOC: PREOP 06:08
PROVIDERS: ATTEND Specialist
DX: Z01.818 Encounter for other preprocedural examination (principal)

== ENCOUNTER 2018-07-26 06:56 | Day surgery (SDC) | payer MEDICARE ==
--- NOTE | 2018-07-10 11:14 | Anesthesia-General Post-Op ---
MAC Patient Condition Mental Status/LOC: Same as Preop Cardiovascular: Satisfactory Nausea/Vomiting: Absent Respiratory: Satisfactory Pain: Controlled Complications: Absent Post Op Complications Complications None Follow Up Care/Instructions Patient Instructions None needed. Anesthesiology Discharge Order Discharge Order Patient is doing well, no complaints, stable vital signs, no apparent adverse anesthesia problems. No complications reported per nursing. ERIK HOGAN CRNA Jul 10, 2018 11:14
[~2018-07-26] VITALS: Ht 165.1 cm; Wt 60.3 kg
[2018-07-26 07:12] VITALS: BP 121/68
[2018-07-26] MEDS ORDERED: MOXIFLOXACIN OPHTH SOLN 5 MG/ML 0.3 ML SYRINGE OP ONE (07:15)
[2018-07-26] MEDS ORDERED: BSS 15 ML IR PRN (07:15)
[2018-07-26] MEDS ORDERED: acetaZOLAMIDE ER 500 MG CAP (DIAMOX SEQUELS) PO ONE (07:15)
[2018-07-26] MEDS ORDERED: EPINEPHrine INJECTION 1 MG/ML AMP INJ ONE (07:15)
[2018-07-26] MEDS ORDERED: LIDOCAINE PF 1% 2 ML AMP IR PRN (07:15)
[2018-07-26] MEDS ORDERED: TIMOLOL MALEATE 0.5% 5 ML (TIMOPTIC) BTL OU PRN (07:15)
[2018-07-26] MEDS ORDERED: POVIDONE (BETADINE) OPHTH SOLN 5% 30 ML OP ONE (07:15)
[2018-07-26] MEDS: TETRACAINE 0.5% OPHTH SOLN 4 ML BTL (SINGLE DOSE ONLY) OU PRN ×4 (07:16→07:37)
[2018-07-26] MEDS: PHENYLEPHRINE 10% OPHTH (NEO-SYN) 5 ML BTL OU SCH ×3 (07:24→07:37)
[2018-07-26] MEDS: CYCLOPENTOLATE 1% (CYCLOGYL) 2 ML DROPS OP SCH ×3 (07:24→07:37)
--- NOTE | 2018-07-26 07:57 | Ophthalmologist Pre-Op Note ---
Pre-Operative Progress Note H&P Reviewed The H&P was reviewed, patient examined and no changes noted. Date H&P Reviewed: Jul 26, 2018 Time H&P Reviewed: 07:57 Pre-Op Dx Cataract, Left Eye SHARON NUNEZ MD Jul 26, 2018 07:57
[2018-07-26] MEDS ORDERED: MIDAZOLAM 2 MG/2 ML (VERSED) VIAL ONE (08:13)
--- NOTE | 2018-07-26 08:31 | Ophthalmology Operative Report ---
Cataract removal/placement IOL PREOPERATIVE DIAGNOSIS: Cataract Left Eye POSTOPERATIVE DIAGNOSIS: Cataract Left Eye PROCEDURE: Cataract removal and placement of posterior chamber implant, left eye SURGEON: Chris Nunez ANESTHESIA: Topical with sedation COMPLICATIONS: None ESTIMATED BLOOD LOSS: Minimal DESCRIPTION OF PROCEDURE: After proper informed consent was obtained, the patient, a 78 female, was taken to the Operating Room and the left eye was anesthetized with tetracaine. The left eye was then prepped and draped in the usual manner. A wire lid speculum was placed. A paracentesis was made at the left hand position. Preservative free lidocaine was injected into the anterior chamber followed by viscoelastic. A clear corneal incision was made in the temporal position. A capsulorrhexis was preformed and the central nuclear and cortical material were removed. The posterior capsule was polished and an Rohan 21.0 AU00TO IOL was placed into the capsular bag. The residual viscoelastic was aspirated and balanced saline solution was injected into the anterior chamber. Moxifloxacin was injected into the anterior chamber. The wound was checked and found to be water tight. The patient tolerated the procedure well without complications. CHRIS NUNEZ MD Jul 26, 2018 08:31
[2018-07-26 08:35] VITALS: BP 144/94
--- OUTSIDE RECORDS SUMMARY | 2018-07-26 11:30 | XMS REPORT | Continuity of Care Document ---
Author Author [facility] Organization [facility] Address Unknown Phone Unavailable Allergies Active Description Code Type Severity Reaction Onset Reported/Identified Relationship to Patient Clinical Status Yes No Known Drug Allergies [id number] Drug Allergy Unknown N/A 07/09/2018 Medications There is no data. Problems Date [...] PRIMARY OSTEOARTHRITIS, LEFT SHOULDER 12/28/2017 MEGAN CHRISTIANSON [employer] Ot M19.012 PRIMARY OSTEOARTHRITIS, LEFT SHOULDER 01/21/2018 [...] 715.31 LOC OSTEOARTH NOS-SHLDER 01/21/2018 DIMAS GUPTA, ORLF Tellez Ot 715.34 LOC OSTEOARTH NOS-HAND 01/21/2018 DIMAS GUPTA, ROLF Tellez Ot 719.41 JOINT PAIN-SHLDER 01/21/2018 DIMAS GUPTA, ROLF Tellez Ot 726.10 BURSAE TENDONS DIS SHLDER NOS 01/21/2018 DIMAS GUPTA, ROLF Tellez Ot 789.00 ABDOMINAL PAIN, UNSPECIFIED SITE 01/21/2018 MEGAN CHRISTIANSON [employer] Ot M19.012 PRIMARY OSTEOARTHRITIS, LEFT SHOULDER 01/23/2018 [...] (W/O MENT OF HEMORR 01/30/2018 DIMAS GUPTA, ROLF Tellez Ot 715.31 LOC OSTEOARTH NOS-SHLDER 01/30/2018 [...] PRESENCE OF LEFT ARTIFICIAL SHOULDER BREANNE 04/05/2018 JEWELS GUPTA, MANNY Amaya Ot Z47.1 AFTERCARE FOLLOWING JOINT REPLACEMENT WHITE 04/05/2018 JEWELS GUPTA, MANNY Amaya Ot 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 04/10/2018 JEWELS GUPTA, MANNY Amaya Ot Z47.1 AFTERCARE FOLLOWING JOINT REPLACEMENT WHITE 04/10/2018 MANNY DONIS MD Ot 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 05/06/2018 JEWELS GUPTA, MANNY Amaya Ot Z47.1 AFTERCARE FOLLOWING JOINT REPLACEMENT WHITE 05/06/2018 JEWELS GUPTA, MANNY Amaya Ot 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 05/19/2018 MANNY DONIS MD Ot Z47.1 AFTERCARE FOLLOWING JOINT REPLACEMENT WHITE 05/19/2018 MANNY DONIS MD Ot 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 05/23/2018 Ot Z47.1 AFTERCARE FOLLOWING JOINT REPLACEMENT WHITE 05/23/2018 Ot 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 07/09/2018 SHARON NUNEZ MD Ot Z01.818 ENCOUNTER FOR OTHER PREPROCEDURAL EXAMIN 07/11/2018 MAYRA GUPTA, SHARON Fishman Ot E11.9 TYPE 2 DIABETES MELLITUS WITHOUT COMPLIC 07/11/2018 SHARON NUNEZ MD Ot E78.00 PURE HYPERCHOLESTEROLEMIA, UNSPECIFIED 07/11/2018 SHARON NUNEZ MD Ot E78.5 HYPERLIPIDEMIA, UNSPECIFIED 07/11/2018 SHARON NUNEZ MD Ot F17.210 NICOTINE DEPENDENCE, CIGARETTES, UNCOMPL 07/11/2018 SHARON NUNEZ MD Ot F32.9 MAJOR DEPRESSIVE DISORDER, SINGLE EPISOD 07/11/2018 SHARON NUNEZ MD Ot G47.00 INSOMNIA, UNSPECIFIED 07/11/2018 SHARON NUNEZ MD Ot H26.9 UNSPECIFIED CATARACT 07/11/2018 SHARON NUNEZ MD Ot I10 ESSENTIAL (PRIMARY) HYPERTENSION 07/11/2018 SHARON NUNEZ MD Ot Z79.84 ASSISTED (CURRENT) USE OF ORAL HYPOGLYC 07/11/2018 SHARON NUNEZ MD Ot Z79.899 OTHER ASSISTED (CURRENT) DRUG THERAPY 07/11/2018 SHARON NUNEZ MD Ot E11.36 TYPE 2 DIABETES MELLITUS WITH DIABETIC C 07/11/2018 SHARON NUNEZ MD Ot E78.00 PURE HYPERCHOLESTEROLEMIA, UNSPECIFIED 07/11/2018 SHARON NUNEZ MD, Ot E78.5 HYPERLIPIDEMIA, UNSPECIFIED 07/11/2018 SHARON NUNEZ MD Ot F17.210 NICOTINE DEPENDENCE, CIGARETTES, UNCOMPL 07/11/2018 SHARON NUNEZ MD Ot F32.9 MAJOR DEPRESSIVE DISORDER, SINGLE EPISOD 07/11/2018 SHARON NUNEZ MD, Ot G47.00 INSOMNIA, UNSPECIFIED 07/11/2018 SHARON NUNEZ MD, Ot H26.9 UNSPECIFIED CATARACT 07/11/2018 SHARON NUNEZ MD, Ot I10 ESSENTIAL (PRIMARY) HYPERTENSION 07/11/2018 SHARON NUNEZ MD, Ot Z79.84 TALENT PARTNER (CURRENT) USE OF ORAL HYPOGLYC 07/11/2018 SHARON NUNEZ MD, Ot Z79.899 OTHER TALENT PARTNER (CURRENT) DRUG THERAPY Procedures Code Description Performed By Performed On 5XEP1AN REPLACEMENT OF L SHOULDER JT WITH SYNTH [...] culture - 01/21/18 12:48 Bacterial urine culture [id number] NRG COLONY COUNT <10,000 NRG FTX;REPORTABLE SINGLE COLONY NRG URINE CULTURE RESULTS PLUS NRG FREE TEXT ENTRY 2 NO FURTHER STUDIES UNLESS REQUESTED NRG Blood type T Indirect antibody screen panel - 01/30/18 06:20 ABO+Rh group OP NRG Transfusion band number [id number] NRG Blood group antibody screen NEGATIVE NRG [...] Blood hematocrit (volume fraction) 32 % 35-52 Capillary blood glucose measurement by glucometer (mass/volume) - 07/10/18 09: 29 Capillary blood glucose measurement by glucometer (mass/volume) 146 mg/dL 70-110 Capillary blood glucose measurement by glucometer (mass/volume) - 07/26/18 07: 12 Capillary blood glucose measurement by glucometer (mass/volume) 137 mg/dL 70-110 Encounters ACCT No. Visit Date/Time Discharge Status Pt. Type Provider Facility Loc./Unit Complaint [id number] 07/24/2018 06:08:00 07/24/2018 15:46:00 DIS Outpatient HSARON NUNEZ MD [facility] PREOP CATARACT LEFT [id number] 07/10/2018 08:52:00 07/10/2018 10:52:00 DIS Outpatient SHARON NUNEZ MD [facility] SDC CATARACT RIGHT EYE [id number] 07/09/2018 05:53:00 07/09/2018 14:49:00 DIS Outpatient SAHRON NUNEZ MD [facility] PREOP CATARACT RIGHT EYE [id number] 05/14/2018 09:54:00 05/14/2018 23:59:59 CLS Outpatient MANNY DONIS MD [facility] REHAB L TOTAL SHOULDER; PRIMARY OA LEFT SHOULDER [id number] 01/30/2018 06:00:00 02/01/2018 10:45:00 DIS Inpatient MANNY DONIS MD [facility] 4TH LEFT SHOULDER OSTEOARTHRITIS [id number] 01/21/2018 11:51:00 01/21/2018 13:00:00 DIS Outpatient MANNY DONIS MD [facility] PREOP LEFT SHOULDER OSTEOARTHRITIS [id number] 11/30/2017 09:35:00 11/30/2017 23:59:59 CLS Outpatient MEGAN CHRISTIANSON APRN [facility] RAD LT ANTERIOR SHOULDER PAIN [id number] 02/24/2014 12:44:00 02/24/2014 23:59:59 CLS Outpatient ROLF COCHRAN MD [facility] RAD LFT SHOULDER PAIN,RT GROIN PAIN [id number] 02/09/2014 08:56:00 02/09/2014 09:31:00 DIS Emergency SHAWN ROMERO MD [facility] ER RASH ON RIGHT LEG [id number] 08/11/2013 11:23:00 08/11/2013 23:59:59 CLS Outpatient ROLF COCHRAN MD [facility] RAD PAIN IN LIMB [id number] 07/26/2018 09:00:00 PEN Preadmit MAYRA GUPTA, SHARON Fishman [facility] SDC LEFT CATARACT [id number] 05/23/2018 10:56:00 Document Registration [id number] 01/27/2013 08:46:00 Document Registration
== END 2018-07-26 08:40 | disposition home or self-care (01) ==
LOC: SDC 06:56
PROVIDERS: ATTEND Specialist
DX: H25.12 Age-related nuclear cataract, left eye (principal); E11.36 Type 2 diabetes mellitus with diabetic cataract; F17.210 Nicotine dependence, cigarettes, uncomplicated; Z79.84 Long term (current) use of oral hypoglycemic drugs
CPT/HCPCS: 82962

== ENCOUNTER → 2022-11-27 | Outpatient (CLI) | payer MEDICARE ==
[~2022-11-27] MED LIST changes: +GADOTERATE 0.5 MMOL/ML (CLARISCAN) 20 ML VIAL IV ONE
--- NOTE | 2022-11-27 15:26 | Diagnostic Imaging Report ---
MRI BRAIN W/WO CONTRAST Date: 11/27/2022 2:53 PM Indication: Dementia, Comparison: None. Technique: Multiplanar multisequence MRI of the brain was performed with and without intravenous contrast using the standard protocol. Contrast was administered intravenously during the exam. Findings: No acute infarct. No acute or chronic hemorrhage. Mild generalized prominence of ventricles and cortical sulci. Extensive FLAIR hyperintense signal in the subcortical and periventricular deep white matter, a nonspecific finding, most commonly seen with chronic small vessel ischemic disease. No abnormal enhancement. The scalp and calvarium are normal. The pituitary and sella are normal. No Chiari malformation. The visualized upper cervical spine is normal. The visualized orbits and globes are normal. The visualized paranasal sinuses are clear. The mastoid air cells are clear. Normal flow voids within the vertebral, basilar, and internal carotid arteries indicating patency. IMPRESSION: 1. No acute infarct or hemorrhage. 2. No mass or abnormal enhancement. 3. Advanced chronic small vessel ischemic disease. Mild global volume loss. Dictated by: Dictated on workstation # [id number]
== END ==
LOC: RAD 13:49
PROVIDERS: ATTEND Nurse Practitioner
DX: I67.82 Cerebral ischemia (principal)
CPT/HCPCS: 70553